=== PATIENT | male | born 1985 | race Caucasian/White ===

== ENCOUNTER 2017-02-03 18:36 | Emergency (ER) | payer OTHER ==
[~2017-02-03] VITALS: Ht 185.4 cm; Wt 130.0 kg
[2017-02-03 18:57] VITALS: BP 186/89; PULSE 90; RESP 20; TEMP 98.4; O2SAT 94
[2017-02-03] MEDS ORDERED: AMBI10TA PO (19:01)
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
[2017-02-03] MEDS ORDERED: ACETAMINOPHEN 500 MG CPLT PO ONE (19:15)
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
== END 2017-02-03 20:47 | disposition home or self-care (01) ==
LOC: NEPD 18:36
DX: S09.90XA Unspecified injury of head, initial encounter (principal); V59.40XA Driver of pick-up truck or van injured in collision with unspecified motor vehicles in traffic accident, initial encounter; Y92.488 Other paved roadways as the place of occurrence of the external cause
CPT/HCPCS: 70450